=== PATIENT | female | born 1990 | race African-American/Black ===

== ENCOUNTER 2022-05-08 11:02 | Emergency (ER) | payer OTHER ==
[~2022-05-08] VITALS: Ht 152.4 cm; Wt 68.0 kg
[2022-05-08] MEDS ORDERED: IBUPROFEN 600 MG TAB PO STA (11:19)
== END 2022-05-08 13:46 | disposition home or self-care (01) ==
LOC: ER 11:10
DX: M79.605 Pain in left leg (principal); J02.9 Acute pharyngitis, unspecified
CPT/HCPCS: 93971; 99283

== ENCOUNTER 2022-06-21 14:25 | Emergency (ER) | payer OTHER ==
[~2022-06-21] VITALS: Ht 152.4 cm; Wt 68.0 kg
[2022-06-21 15:15] LABS: CLARITY,URINE SL CLOUDY (CLEAR); COLOR,URINE AMBER (YELLOW); KETONES,URINE NEGATIVE (NEGATIVE); LEUKOCYTE ESTERASE ,URINE SMALL (NEGATIVE); NITRITE,URINE NEGATIVE (NEGATIVE); PROTEIN,URINE DIPSTICK 1+ (NEGATIVE); URINE UROBILINOGEN 0.2 mg/dL (0.2 - 1)
[2022-06-21 15:27] LABS: BACTERIA,URINE MANY /HPF; EPITHELIAL CELLS,URINE MODERATE /LPF; WBC,URINE (MAN) 21-50 /HPF (0-5)
[2022-06-21] MEDS ORDERED: CEFDINIR300 MG PO (15:34)
== END 2022-06-21 16:26 | disposition home or self-care (01) ==
LOC: ER 14:31
DX: N30.00 Acute cystitis without hematuria (principal)
CPT/HCPCS: 81001; 81025; 99282

== ENCOUNTER 2023-10-22 22:32 | Emergency (ER) | payer BC, OTHER ==
[~2023-10-22] VITALS: Ht 152.4 cm; Wt 68.0 kg
[~2023-10-22 22:32] MED LIST: CEFDINIR300 MG PO
[2023-10-22 23:49] VITALS: PULSE 87; RESP 18; TEMP 98.6; O2SAT 100
[2023-10-23 01:10] LABS: BACTERIA,URINE MANY /HPF; EPITHELIAL CELLS,URINE MANY /LPF
[2023-10-23 01:11] LABS: TRANSITIONAL EPI CELLS,URINE FEW
[2023-10-23 01:16] LABS: BILIRUBIN,URINE NEGATIVE (NEGATIVE); CLARITY,URINE CLOUDY (CLEAR); COLOR,URINE YELLOW (YELLOW); GLUCOSE, URINE NEGATIVE (NEGATIVE); KETONES,URINE NEGATIVE (NEGATIVE); LEUKOCYTE ESTERASE ,URINE NEGATIVE (NEGATIVE); NITRITE,URINE NEGATIVE (NEGATIVE); PH,URINE 6 (5 - 7); PROTEIN,URINE DIPSTICK NEGATIVE (NEGATIVE); RBC,URINE 21-50 /HPF (0-5); URINE UROBILINOGEN 0.2 mg/dL (0.2 - 1)
[2023-10-23 01:17] LABS: PREGNANCY TEST, URINE NEGATIVE (NEGATIVE)
== END 2023-10-23 01:25 | disposition home or self-care (01) ==
LOC: ER 22:37
DX: R10.2 Pelvic and perineal pain (principal)
CPT/HCPCS: 81001; 81025; 99282

== ENCOUNTER 2023-11-29 17:45 | Emergency (ER) | payer OTHER ==
[~2023-11-29] VITALS: Ht 152.4 cm; Wt 68.0 kg
[2023-11-29 17:50] VITALS: TEMP 98
[2023-11-29 18:20] LABS: BASOPHILS # (AUTO) 0.1 (0.0-0.1); BASOPHILS % 0.9 % (0.0-1.0); EOSINOPHILS # (AUTO) 0.1 (0.0-0.4); EOSINOPHILS % 2.4 % (0.0-6.0); HEMATOCRIT 44.1 % (34.2-44.1); HEMOGLOBIN 13.7 g/dL (12.0-16.0); LYMPHOCYTES # (AUTO) 1.7 (1.0-3.2); LYMPHOCYTES % 32.2 % (18.0-39.1); MEAN CORPUSCULAR HEMOGLOBIN 29.1 pg (28-32); MEAN CORPUSCULAR HGB CONC 31.1 g/dL (31-35); MEAN CORPUSCULAR VOLUME 93.6 fL (81-99); MONOCYTES # (AUTO) 0.5 (0.2-0.8); MONOCYTES % 9.4 % (4.4-11.3); NEUTROPHILS % 54.9 % (38.7-80.0); PLATELET COUNT 205 x10e3/uL (140-360); RED BLOOD COUNT 4.71 x10e6/uL (3.6-5.1); RED CELL DISTRIBUTION WIDTH 13.7 % (11.7-14.4); WHITE BLOOD COUNT 5.41 x10e3/uL (4.8-10.8)
[2023-11-29 18:36] LABS: ALANINE AMINOTRANSFERASE 20 IU/L (0-55); ALBUMIN 3.8 g/dL (3.5-5.0); ALBUMIN/GLOBULIN RATIO 1.3 (0.8-2.0); ALKALINE PHOSPHATASE 46 IU/L (40-150); ANION GAP 12.9 mmol/L (8-16); BILIRUBIN,TOTAL 0.3 mg/dL (0.2-1.2); BLOOD UREA NITROGEN 12 mg/dL (7-26); BUN/CREATININE RATIO 12 (6-25); CALCIUM 9.1 mg/dL (8.4-10.2); CARBON DIOXIDE 25 mmol/L (22-29); CHLORIDE 109 mmol/L (98-107); COVID 19 ANTIGEN NOT DETECTED (NEGATIVE); CREATININE, SERUM 0.98 mg/dL (0.57-1.11); EST GLOMERULAR FILTRATION RATE 77 ML/MIN (>=60); GLUCOSE 62 mg/dL (74-118); POTASSIUM 3.9 mmol/L (3.5-5.1); SODIUM 143 mmol/L (136-145); TOTAL PROTEIN 6.7 g/dL (6.5-8.1)
[2023-11-29 19:00] VITALS: PULSE 73; RESP 15; O2SAT 100
== END 2023-11-29 19:35 | disposition home or self-care (01) ==
LOC: ER 18:05
DX: R07.89 Other chest pain (principal); R05.9 Cough, unspecified; Z11.52 Encounter for screening for COVID-19; R94.31 Abnormal electrocardiogram [ECG] [EKG]
CPT/HCPCS: 0223U; 36415; 71045; 80053; 84484; 85025; 93005; 99283